=== PATIENT | male | born 1960 | race Caucasian/White ===

== ENCOUNTER → 2017-03-23 | Outpatient (CLI) | payer OTHER, BC ==
[~2017-03-23] MED LIST: ATV1 PO; GABA300C19 PO; MULT-221 PO; RXC5 PO
--- NOTE | 2017-03-23 14:38 | DIAGNOSTIC IMAGING REPORT ---
L KNEE 1 OR 2 VIEWS ROUTINE CLINICAL HISTORY: Medial left knee pain following fall. COMPARISON: None FINDINGS: Alignment of the left knee is anatomic. No acute fracture or joint effusion is identified. There is minimal osteophytosis of the left knee. There is slight medial compartment joint space narrowing. IMPRESSION: 1. No acute fracture or joint effusion of the left knee. 2. Mild osteoarthrosis of the left knee. Electronically signed by: Fabrice Hsieh M.D. 03/23/2017 2:37 PM Dictated Date/Time: 03/23/2017 2:36 PM
== END | disposition home or self-care (01) ==
LOC: C.RAD1850 14:17
PROVIDERS: ATTEND Nurse Practitioner Adult Health
DX: M25.562 Pain in left knee (principal); W19.XXXA Unspecified fall, initial encounter

== ENCOUNTER → 2017-05-10 | Outpatient (CLI) | payer OTHER, BC ==
[~2017-05-10] MED LIST changes: +B-COTAB18 PO; +GABA-1218 PO; -GABA300C19 PO; +MULT-506 PO
[2017-05-10 15:14] LABS: BASO % 0.3 %; BASO ABS # 0.02 K/uL (0-0.2); COMPLETE YES; HEMATOCRIT 41.5 % (42-52); IG% 0.2 %; LYMPH % 37.4 %; LYMPH ABS # 2.29 K/uL (1.2-3.4); MEAN CELL VOLUME 91.4 fL (80-100); MEAN CORPUSCULAR HEMOGLOBIN 31.7 pg (25-34); MEAN CORPUSCULAR HGB CONC 34.7 g/dl (32-36); MEAN PLATELET VOLUME 9.9 fL (7.4-10.4); MONO % 9.3 %; NEUT % 50.8 %; PLATELET COUNT 207 K/uL (130-400); RED BLOOD COUNT 4.54 M/uL (4.7-6.1); WHITE BLOOD COUNT 6.12 K/uL (4.8-10.8)
[2017-05-10 15:33] LABS: BLOOD UREA NITROGEN 15 mg/dl (7-18); CALCIUM 9.8 mg/dl (8.5-10.1); CARBON DIOXIDE 28 mmol/L (21-32); CHLORIDE 104 mmol/L (98-107); GLUCOSE 81 mg/dl (70-99); POTASSIUM 4.2 mmol/L (3.5-5.1); SODIUM 140 mmol/L (136-145)
== END | disposition home or self-care (01) ==
LOC: C.CPL 12:37
PROVIDERS: ATTEND Orthopaedic Surgery
DX: S83.242A Other tear of medial meniscus, current injury, left knee, initial encounter (principal); X58.XXXA Exposure to other specified factors, initial encounter

== ENCOUNTER → 2017-05-13 | Day surgery (SDC) | payer OTHER, BC ==
[2017-05-11 09:08] VITALS: Ht 177.8 cm; Wt 97.7 kg
[~2017-05-13] VITALS: Ht 177.8 cm; Wt 97.7 kg
[~2017-05-13] MED LIST changes: +ATROPINE SULFATE 0.1 MG/ML 5ML SYR IV PRN; -ATV1 PO; +DEXAMETHASONE SOD INJ 4 MG/ML VIAL ONE; +EpHEDrine SULFATE INJ 50 MG/ML AMP IV PRN; +EpINEphrine INJ 1MG/ML AMP 1 MG/ML AMP ONE; +FENTANYL CITRATE INJ 50 MCG/1 ML 2 ML VIAL IV PRN; +FENTANYL CITRATE INJ 50 MCG/1 ML 2 ML VIAL ONE; -GABA-1218 PO; +HYDR-5688 PO; +HYDROCODONE/ACETAMOPHEN 5/325MG TAB PO PRN; +KETOROLAC TROMETHAMINE 30 MG/ML VIAL ONE; +LACTATED RINGER'S 1000ML 1,000 ML IV SCH; +LIDOCAINE HCL 2% 2 ML VIAL (20MG/ML) ONE; +MIDAZOLAM HCL 1 MG/ML 2ML VIAL ONE; -MULT-221 PO; +ONDANSETRON INJ 2 MG/ML 2 ML VIAL IV PRN; +ONDANSETRON INJ 2 MG/ML 2 ML VIAL ONE; +PROPOFOL IV EMULSION 10 MG/ML 20 ML VIAL IV ONE; +ROPIVACAINE 0.5% 5 MG/ML 30 ML VIAL ONE; -RXC5 PO; +SODIUM CHLORIDE 0.9% 1000ML 1,000 ML IV SCH
--- NOTE | 2017-05-13 09:23 | History & Physical Bridge Note ---
H&P Re-Evaluation Bridge Note: I have examined the patient, reviewed the History & Physical and in the interval since the performance of the History & Physical I have noted the following changes of clinical significance: No changes noted
[2017-05-13] MEDS: CEFAZOLIN 2000MG IV PUSH 10 ML IV SCH ×2 (09:35→10:20)
--- NOTE | 2017-05-13 10:47 | [facility] Post Operative Brief Note ---
Immediate Operative Summary Operative Date May 13, 2017. Pre-Operative Diagnosis Left knee medial meniscus tear Post-Operative Diagnosis Same as preop Procedure(s) Performed Left Knee Arthroscopy With Partial Medial Meniscectomy, Chondroplasty Surgeon Dr. Martinez Special Effects Person Surgeon(s) Delvis Meyers PA-C Estimated Blood Loss 5cc Findings as above Specimens None Complication(s) None Disposition Recovery Room / PACU
--- NOTE | 2017-05-13 10:54 | Discharge Instructions-SurgCtr ---
Discharge Instructions Date of Service May 13, 2017. Visit Reason for Visit: Left Knee Medial Meniscus Tear, Osteoarthritis Discharge Discharge Diagnosis / Problem: SAME ABOVE Discharge Goals Goal(s): Decrease discomfort, Improve function Activity Recommendations Activity Limitations: as noted below Lifting Limitations: until after follow-up appointment Exercise/Sports Limitations: until after follow-up appointment Shower/Bathe: tomorrow Anesthesia . Post Anesthesia Instructions: If you have had General Anesthesia or IV Sedation: * Do not drive today. * Resume driving when surgeon permits. * Do not make important decisions or sign legal documents today. * Call surgeon for: 1. Temperature elevations greater than 101 degrees F. 2. Uncontrollable pain. 3. Excessive bleeding. 4. Persistent nausea and vomiting. 5. Medication intolerance (nausea, vomiting or rash). * For nausea and vomiting use only clear liquids such as: tea, soda, bouillon until nausea subsides, then gradually increase diet as tolerated. * If you have any concerns or questions, call your surgeon's office. If physician is unavailable and it is an emergency, call 911 or go to the nearest emergency room. . Instructions / Follow-Up Instructions / Follow-Up MEDICATIONS: * Resume previous medications unless instructed otherwise by your surgeon. * Always take pain medication on a full stomach or with food to avoid upset stomach. * Do not drink alcohol or drive while taking narcotics. * Ibuprofen or Tylenol may be taken if narcotic not needed. SPECIAL CARE INSTRUCTIONS: __ None _X_ Keep extremity elevated and iced x 48 hours; apply ice 20-30 minutes 8-10 times/day. May remove at night. _X_ Crutches (IF HE DOES NOT HAVE THEM HE DOES NOT NEED THEM) _X_ May discard when able __ Brace/Post-op shoe __ 24 hrs/day __ Remove at night _X_ Dressing __ Maintain until seen in office, may shower with plastic over site _X_ Remove dressings in 24-48 hours and then may shower _X_ Cover incisions with band-aids after showering __ Do not remove steri-strips Call physician if chills or temperature rises above 102 degrees or pain unrelieved by prescribed pain medications. Office [phone] Diet Recommendations Home Diet: no limitations Fluid Restriction: None Procedures Procedures Performed: Left Knee Arthroscopy With Partial Medial Meniscectomy, Chondroplasty Pending Studies Studies pending at discharge: no Work Instructions Return To Work: after follow-up Medical Emergencies . Who to Call and When: Medical Emergencies: If at any time you feel your situation is an emergency, please call 911 immediately. . Non-Emergent Contact Non-Emergency issues call your: Primary Care Provider Call Non-Emergent contact if: you have a fever, temperature is above 101.5 . . "Provider Documentation" section prepared by Delvis Meyers. .
--- NOTE | 2017-05-13 11:29 | OPERATIVE REPORT ---
DATE OF OPERATION: 05/13/2017 PREOPERATIVE DIAGNOSIS: Medial meniscal tear of the left knee. POSTOPERATIVE DIAGNOSIS: Medial meniscal tear of the knee with grade 3 and grade 4 chondral changes off the distal medial femoral condyle. PROCEDURE: Left knee arthroscopy with partial medial meniscectomy and chondroplasty. SURGEON: Dr. Migue Martinez. PORCELAIN ENAMEL INSTALLER: Ilir Meyers PA-C, whose assistance was necessary for positioning of the knee and helping with instrumentation and closure. ANESTHESIA: General. COMPLICATIONS: None. CONDITION: Stable to PACU. 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 He was unloading a truck when he slipped and fell on a wet ramp about 6 weeks ago. He had a twisting injury to his knee. He had significant medial sided knee pain. He does have a history of prior knee arthroscopy which was doing well until he twisted his knee. Repeat MRI did show a medial meniscus tear. He elected to undergo arthroscopy. OPERATION AND FINDINGS: On 05/13/2017 he arrived at [facility] for the above procedure. He was seen in the preoperative holding area and the operative extremity was identified and signed. He was given a preoperative antibiotic and taken back to the operating room, laid on the table in supine position and put under general anesthesia. The left knee was then prepped and draped in sterile fashion. Time-out was done and the patient and operative extremity was properly identified. A scope was introduced into the lateral parapatellar portal. Diagnostic arthroscopy showed no loose bodies in the suprapatellar pouch. There was no cartilage damage in the patellofemoral joint. The scope was brought into the medial compartment. There was grade 3 and grade 4 chondral changes off the distal medial femoral condyle. There was evidence of prior meniscectomy. There was a horizontal flap tear of the body of the medial meniscus and the lower portion was flipped into the medial gutter. A medial parapatellar portal was made under direct visualization. A probe was used to probe the lower flap of this tear. A shaver was then used to remove the lower flap of the tear and get the meniscus back to stable margins. A chondroplasty was then done of the distal medial femoral condyle to remove any loose cartilage fragments. The scope was then brought into the trochlea. ACL and PCL were intact. The scope was brought into the lateral compartment. There was no cartilage or meniscus damage laterally. The scope was then placed in the medial parapatellar portal. Repeat diagnostic arthroscopy showed no additional pathology. Arthroscopic instruments were removed from the knee. Portal sites were closed with 3-0 nylon. The knee was then injected with 30 mL of ropivacaine with epinephrine and Toradol. He was then placed in a soft compressive dressing, extubated, and taken to the postanesthesia care unit in stable condition. He tolerated the procedure well. I attest to the content of the Intraoperative Record and any orders documented therein. Any exception s are noted below.
[2017-05-13 11:37] VITALS: TEMP 36.2
[2017-05-13 12:02] VITALS: BP 118/80; PULSE 55; O2SAT 99
--- NOTE | 2017-05-13 12:06 | Anesthesia Progress Nt - [facility] ---
Anesthesia Post Op Note Date & Time May 13, 2017 at 12:06 Vital Signs Pain Intensity: 2 Vital Signs Past 12 Hours Date Time Temp Pulse Resp B/P (MAP) Pulse Ox O2 Delivery O2 Flow Rate FiO2 05/13/17 12:02 55 12 118/80 (93) 99 Room Air 05/13/17 11:37 36.2 51 16 103/71 (82) 96 Room Air 05/13/17 11:36 63 05/13/17 11:36 63 96 05/13/17 11:35 110/72 05/13/17 11:31 60 12 97 05/13/17 11:31 59 12 05/13/17 11:30 108/71 05/13/17 11:29 36.4 55 16 108/71 96 Room Air 05/13/17 11:28 59 14 05/13/17 11:28 60 14 95 05/13/17 11:25 102/77 05/13/17 11:23 61 14 108/71 99 05/13/17 11:23 60 14 05/13/17 11:21 33/27 05/13/17 11:18 60 10 05/13/17 11:18 60 10 98 05/13/17 11:15 105/69 05/13/17 11:13 55 13 05/13/17 11:13 56 13 05/13/17 11:10 109/73 05/13/17 11:08 58 14 97 05/13/17 11:08 56 14 05/13/17 11:05 104/71 05/13/17 11:03 57 12 05/13/17 11:03 56 12 97 05/13/17 11:00 95/65 05/13/17 10:58 56 12 98 05/13/17 10:58 58 12 05/13/17 10:55 108/62 05/13/17 10:54 118/77 05/13/17 10:53 36.2 58 12 118/77 96 Mask 6 05/13/17 09:20 36.9 61 16 123/86 (98) 96 Room Air Notes Mental Status: alert / awake / arousable, participated in evaluation Pt Amnestic to Procedure: Yes Nausea / Vomiting: adequately controlled Pain: adequately controlled Airway Patency, RR, SpO2: stable & adequate BP & HR: stable & adequate Hydration State: stable & adequate Anesthetic Complications: no major complications apparent
== END | disposition home or self-care (01) ==
LOC: X.SURG 09:06
PROVIDERS: ATTEND Orthopaedic Surgery
DX: S83.242A Other tear of medial meniscus, current injury, left knee, initial encounter (principal); W01.0XXA Fall on same level from slipping, tripping and stumbling without subsequent striking against object, initial encounter; M19.90 Unspecified osteoarthritis, unspecified site; E66.9 Obesity, unspecified; Z90.89 Acquired absence of other organs